=== PATIENT | female | born 1955 | race Caucasian/White ===

== ENCOUNTER → 2017-03-15 | Outpatient (CLI) | payer MEDICARE, OTHER ==
[~2017-03-15] MED LIST: ASPIRIN81 M2 PO; JANUVIA PO; LISINOPRIL; LISINOPRIL-HCTZ1 T14 PO; METFORMIN HCL500 M1 PO; MOTRIN600 MG PO; VICODIN 5/1 TAB 5/50 PO; VITAMIN D3 COM1 EACH PO
--- NOTE | ~2017-03-15 | MR32 ---
[facility] A Service of [facility] & [facility] RADIOLOGY TEXT RESULTS PATIENT: JONATHAN DOWLING LOCATION: [facility] : 55 UNIT #: [id number] AGE: [address]: Trini Awad APRN SEX: F ORDER DR: [id number] [address] [id number] O MR#: [id number] Acc #: [id number] NAME: JONATHAN DOWLING : 1955 SEX: F STUDY DATE/TIME: 03/15/2017 14:38 UNIT: [facility] ROOM: STUDY DESCRIPTION: MR Cervical Wo Contrast Attending Physician: Trini Awad A.P.R.N. Referring Physician: Trini Awad A.P.R.N. Ordering Physician: Trini Awad A.P.R.N. Primary Care Physician: Ryan Mckeon M.D. MRI CENTER REPORT This report is preliminary unless electronic signature is present. EXAM MR cervical spine without contrast. HISTORY 61-year-old female complains of increasing neck pain, predominantly along the left side with pain radiating into left upper extremity symptoms for about 7 months. COMPARISON C-spine series 03/06/2017 FINDINGS Multiplanar multiecho imaging was performed of the cervical spine utilizing a high field magnet and dedicated protocol. Normal cervical alignment. Cervical vertebral marrow signal unremarkable except for a ovoid focus of T2 hyperintensity within the posterior-superior aspect of the C7 vertebral body. This is ISO to hyperintense on the T1-weighted sequences and most likely represents a small hemangioma. Normal cervical alignment. Cervical cord signal appears normal without mass, syrinx or contusion. No evidence of Chiari malformation. Atlantoaxial joint unremarkable. C2-3, C3-4 and C4-5 disc levels unremarkable. At C5-6 there is a right paracentral broad-based disc protrusion measuring approximately 9 mm across its base and approximately 3 mm in height. This effaces the thecal sac and impinges the anterior cervical cord at the 05/06 level. At C6-7 and C7-T1 the disc is maintained. No significant spinal or foraminal stenosis. Facet joints unremarkable. Paravertebral soft tissues appear normal. IMPRESSION [facility]. [facility] A Service of [facility] & [facility] RADIOLOGY TEXT RESULTS PATIENT: JONATHAN DOWLING LOCATION: [facility] : 55 UNIT #: [id number] AGE: [address]: Trini Awad APRN SEX: F ORDER DR: 1. Small moderate sized right paracentral disc protrusion C5-6 with effacement of the thecal sac and right anterior cervical cord impingement. Dictated by... Patricia Flores M.D. THIS IS AN ELECTRONICALLY VERIFIED REPORT Patricia Flores M.D. at 03/19/2017 10:14 AM LINDA/darrell TD: 03/18/2017 14:26 JOB #: [id number] MRI CENTER REPORT Page 1 of 1
== END | disposition home or self-care (01) ==
LOC: SMRI 13:45
DX: M54.2 Cervicalgia (principal); M50.222 Other cervical disc displacement at C5-C6 level
CPT/HCPCS: 72141